=== PATIENT | male | born 1950 | race Caucasian/White ===

== ENCOUNTER 2019-12-29 16:06 | Inpatient (IN) | payer OTHER ==
[~2019-12-29] VITALS: Ht 185.4 cm; Wt 103.0 kg
[2019-12-29] MEDS ORDERED: ASPirin 81 mg TAB PO ONE (16:30)
[2019-12-29 19:15] LABS: Basophils # (auto) 0 10 ^3/uL (0-0.2); Basophils % (auto) 0.5 % (0.0-2.0); Eosinophils # (auto) 0 10 ^3/uL (0-0.8); Eosinophils % (auto) 0.4 % (0.0-7.0); Hematocrit 45.4 % (41.0-53.0); Hemoglobin 15.1 g/dL (13.5-17.5); Lymphocytes # (auto) 0.5 10 ^3/uL (0.4-5.4); Lymphocytes % (auto) 5.7 % (10.0-50.0); Mean Corpuscular Hemoglobin 29.9 pg (28.0-32.0); Mean Corpuscular Hgb Conc. 33.4 g/dL (32.0-36.0); Mean Corpuscular Volume 89.6 fL (80.0-100.0); Monocytes # (auto) 0.8 10 ^3/uL (0-1.3); Monocytes % (auto) 8.8 % (0.0-12.0); Neutrophils # (auto) 7.6 10 ^3/uL (1.6-8.6); Neutrophils % (auto) 84.6 % (37.0-80.0); Platelet Count (auto) 194 10^3/uL (140-450); Red Blood Cells 5.07 10^6/uL (4.5-5.90); Red Cell Distribution Width 14.6 % (11.8-14.3)
[2019-12-29 19:27] LABS: Albumin 4.1 g/dL (3.4-5.0); Calcium 8.6 mg/dL (8.5-10.1); Potassium 4.2 mmol/L (3.5-5.1)
[2019-12-29 19:34] LABS: BUN/Creatinine Ratio 13.6; Bilirubin, Total 0.5 mg/dL (0.2-1.0)
[2019-12-29] MEDS ORDERED: ENOXAPARIN SOD 100 MG/1 ML SYRINGE SC ONE (20:00)
[2019-12-29] MEDS ORDERED: ACETAMINOPHEN 325 MG TAB PO PRN (20:45)
[2019-12-29] MEDS ORDERED: METOPROLOL TARTRATE 1MG/1ML-5ML VIAL IV PRN (20:45)
[2019-12-29] MEDS ORDERED: MORPHINE SULF INJ 2 MG/ML SYRINGE 1ML IV PRN (20:45)
[2019-12-29] MEDS ORDERED: NITROGLYCERIN 0.4 MG SL TAB SL PRN (20:45)
[2019-12-30] VITALS: BP 147/80
[2019-12-30] MEDS: ATORVASTATIN 20 MG TAB PO SCH ×2 (00:27→23:56)
[2019-12-30] MEDS: METOPROLOL TARTRATE 25 MG TAB PO SCH ×3 (00:29→23:57)
[2019-12-30] MEDS: LORazepam 0.5 MG TAB PO PRN ×2 (01:18→23:57)
[2019-12-30 06:45] LABS: Basophils # (auto) 0.1 10 ^3/uL (0-0.2); Basophils % (auto) 0.7 % (0.0-2.0); Eosinophils # (auto) 0 10 ^3/uL (0-0.8); Eosinophils % (auto) 0.5 % (0.0-7.0); Hematocrit 45.6 % (41.0-53.0); Hemoglobin 15.1 g/dL (13.5-17.5); Lymphocytes # (auto) 0.6 10 ^3/uL (0.4-5.4); Lymphocytes % (auto) 7.6 % (10.0-50.0); Mean Corpuscular Hemoglobin 29.7 pg (28.0-32.0); Mean Corpuscular Hgb Conc. 33.1 g/dL (32.0-36.0); Mean Corpuscular Volume 89.6 fL (80.0-100.0); Monocytes # (auto) 0.6 10 ^3/uL (0-1.3); Monocytes % (auto) 7.3 % (0.0-12.0); Neutrophils # (auto) 6.6 10 ^3/uL (1.6-8.6); Neutrophils % (auto) 83.9 % (37.0-80.0); Platelet Count (auto) 205 10^3/uL (140-450); Red Blood Cells 5.09 10^6/uL (4.5-5.90); Red Cell Distribution Width 14.5 % (11.8-14.3); White Blood Cell 7.8 10^3/uL (4.4-10.8)
[2019-12-30 06:56] LABS: Potassium 3.9 mmol/L (3.5-5.1)
[2019-12-30 07:04] LABS: BUN/Creatinine Ratio 12.5; Calcium 8.1 mg/dL (8.5-10.1)
[2019-12-30 08:00] VITALS: BP 141/89
[2019-12-30 09:00] VITALS: BP 141/89
[2019-12-30] MEDS: DOCUSATE SOD 100 MG CAP PO SCH (10:28)
[2019-12-30] MEDS: ASPirin 81 mg TAB PO SCH (10:28)
[2019-12-30] MEDS: ENOXAPARIN SOD 100 MG/1 ML SYRINGE SC SCH ×2 (10:29→23:58)
[2019-12-30] MEDS: CLOPIDOGREL BISULFATE 75 MG TAB PO SCH (10:29)
[2019-12-30] MEDS: LISINOPRIL 5 MG TAB PO SCH (10:29)
[2019-12-30 13:00] VITALS: BP 124/80
[2019-12-30] MEDS ORDERED: OPTISON 3ml Vial for INJ IV ONE (13:01)
[2019-12-30 17:00] VITALS: BP 131/82
[2019-12-30 22:00] VITALS: BP 118/78
[2019-12-31] VITALS (7 sets, daily range): BP systolic 103–129; BP diastolic 64–103
[2019-12-31] MEDS: ASPirin 81 mg TAB PO SCH (10:02)
[2019-12-31] MEDS: DOCUSATE SOD 100 MG CAP PO SCH (10:03)
[2019-12-31] MEDS: CLOPIDOGREL BISULFATE 75 MG TAB PO SCH (10:03)
[2019-12-31] MEDS: METOPROLOL TARTRATE 25 MG TAB PO SCH ×2 (10:03→22:00)
[2019-12-31] MEDS: LISINOPRIL 5 MG TAB PO SCH (10:04)
[2019-12-31] MEDS: ENOXAPARIN SOD 100 MG/1 ML SYRINGE SC SCH ×2 (10:04→21:26)
[2019-12-31] MEDS: ATORVASTATIN 20 MG TAB PO SCH (21:25)
[2019-12-31] MEDS: LORazepam 0.5 MG TAB PO PRN (23:08)
[2020-01-01 00:57] LABS: Urine WBC None Seen /hpf (0 - 3)
[2020-01-01 01:08] LABS: Urine Bacteria NONE SEEN /hpf (None Seen); Urine Blood Negative /uL (Negative); Urine Specific Gravity 1.003 (1.001-1.035)
[2020-01-01 05:36] VITALS: BP 122/70
[2020-01-01] MEDS ORDERED: MIDAZOLAM HCL 1MG/1ML-2 ML VIAL IV ONE (08:30)
[2020-01-01] MEDS ORDERED: ADENOSINE 87 MG in GIVE UN-DILUTED 0 ML IV STA (09:14)
[2020-01-01] MEDS: ENOXAPARIN SOD 100 MG/1 ML SYRINGE SC SCH ×2 (11:06→22:24)
[2020-01-01] MEDS: ASPirin 81 mg TAB PO SCH (11:06)
[2020-01-01] MEDS: CLOPIDOGREL BISULFATE 75 MG TAB PO SCH (11:07)
[2020-01-01] MEDS: DOCUSATE SOD 100 MG CAP PO SCH (11:07)
[2020-01-01] MEDS: LISINOPRIL 5 MG TAB PO SCH (11:07)
[2020-01-01] MEDS: METOPROLOL TARTRATE 25 MG TAB PO SCH ×2 (11:07→22:24)
[2020-01-01 13:00] VITALS: BP 126/89
[2020-01-01 17:00] VITALS: BP 105/79
[2020-01-01 22:00] VITALS: BP 115/82
[2020-01-01] MEDS: ATORVASTATIN 20 MG TAB PO SCH (22:24)
[2020-01-02 05:00] VITALS: BP 109/76
[2020-01-02 09:40] VITALS: BP 133/89
[2020-01-02] MEDS: ASPirin 81 mg TAB PO SCH (11:21)
[2020-01-02] MEDS: DOCUSATE SOD 100 MG CAP PO SCH (11:21)
[2020-01-02] MEDS: ENOXAPARIN SOD 100 MG/1 ML SYRINGE SC SCH ×2 (11:22→21:31)
[2020-01-02] MEDS: LISINOPRIL 5 MG TAB PO SCH (11:22)
[2020-01-02] MEDS: CLOPIDOGREL BISULFATE 75 MG TAB PO SCH (11:22)
[2020-01-02] MEDS: METOPROLOL TARTRATE 25 MG TAB PO SCH ×2 (11:22→21:30)
[2020-01-02 13:00] VITALS: BP 125/67
[2020-01-02 17:00] VITALS: BP 115/78
[2020-01-02] MEDS: ATORVASTATIN 20 MG TAB PO SCH (21:30)
[2020-01-02 21:41] VITALS: BP 125/68
[2020-01-02 21:43] VITALS: BP 137/68
[2020-01-03 05:11] VITALS: BP 102/49
[2020-01-03 09:00] VITALS: BP 145/67
[2020-01-03] MEDS: ENOXAPARIN SOD 100 MG/1 ML SYRINGE SC SCH (10:30)
[2020-01-03] MEDS: METOPROLOL TARTRATE 25 MG TAB PO SCH ×2 (10:31→21:53)
[2020-01-03] MEDS: ASPirin 81 mg TAB PO SCH (10:31)
[2020-01-03] MEDS: CLOPIDOGREL BISULFATE 75 MG TAB PO SCH (10:31)
[2020-01-03] MEDS: DOCUSATE SOD 100 MG CAP PO SCH (10:31)
[2020-01-03] MEDS: LISINOPRIL 5 MG TAB PO SCH (10:32)
[2020-01-03] MEDS ORDERED: RIVAROXABAN 20 MG TAB PO ONE (12:15)
[2020-01-03 13:00] VITALS: BP 103/59
[2020-01-03 16:36] VITALS: BP 123/79
[2020-01-03] MEDS ORDERED: RIVAROXABAN 20 MG TAB PO SCH (18:00)
[2020-01-03] MEDS: ATORVASTATIN 20 MG TAB PO SCH (21:53)
[2020-01-03 22:00] VITALS: BP 110/73
[2020-01-04 05:00] VITALS: BP 106/47
[2020-01-04 09:00] VITALS: BP 130/68
[2020-01-04] MEDS: ASPirin 81 mg TAB PO SCH (09:26)
[2020-01-04] MEDS: METOPROLOL TARTRATE 25 MG TAB PO SCH (09:27)
[2020-01-04] MEDS: LISINOPRIL 5 MG TAB PO SCH (09:27)
[2020-01-04] MEDS: CLOPIDOGREL BISULFATE 75 MG TAB PO SCH (09:27)
[2020-01-04] MEDS: DOCUSATE SOD 100 MG CAP PO SCH (09:27)
[2020-01-04 12:05] VITALS: BP 130/68
== END 2020-01-04 13:44 | disposition home or self-care (01) | DRG 282 ==
LOC: ER 16:06 → EDBD 16:06 → TELE 16:07 → TELE-WESTW 23:40
PROVIDERS: ADMIT Hospitalist; ATTEND Family Medicine
PROC: B246ZZ4 Ultrasonography of Right and Left Heart, Transesophageal (ICD-10-PCS; principal; 2020-01-01)
DX: I21.4 Non-ST elevation (NSTEMI) myocardial infarction (principal); R00.0 Tachycardia, unspecified; F41.9 Anxiety disorder, unspecified; E66.01 Morbid (severe) obesity due to excess calories; R00.2 Palpitations; I51.3 Intracardiac thrombosis, not elsewhere classified; I10 Essential (primary) hypertension; G47.33 Obstructive sleep apnea (adult) (pediatric); E03.9 Hypothyroidism, unspecified; Z68.30 Body mass index [BMI] 30.0-30.9, adult
CPT/HCPCS: 36415; 71046; 78452; 80048; 80053; 80061; 81001; 84443; 84484; 85025; 87040; 93005; 93017; 93306; 93312; 99152; G0378; J0153; J2250; Q9956